=== PATIENT | male | born 1970 | race Caucasian/White ===

== ENCOUNTER → 2020-06-08 | Outpatient (CLI) | payer BC | END | disposition home or self-care (01) | LOC: LABPAT 08:03 | PROVIDERS: ATTEND Surgery | DX: U07.1 COVID-19 (principal) | CPT/HCPCS: U0003; C9803 ==

== ENCOUNTER 2020-06-15 08:19 | Day surgery (SDC) | payer BC ==
[2020-06-14 09:19] VITALS: BMI 31.9
[~2020-06-15 08:19] MED LIST: LACTATED RINGERS 1,000 ML IV SCH; LIDOCAINE 1% (10MG/ML) FOR IV START INTRADERMA PRN
[2020-06-15 08:58] VITALS: RESP 16; TEMP 96.9
[2020-06-15] MEDS ORDERED: PROPOFOL 10 MG/ML 20 ML VIAL IV ONE (09:34)
--- NOTE | 2020-06-15 09:37 | P.GSHP ---
History of Present Illness H&P Date: 06/15/20 50-year-old male presents for an elective colonoscopy. His last colonoscopy was 10 years ago. No polyps at that time. He states he occasionally has blood in his stool. Denies any family history of colon cancer. Denies any history of ulcerative colitis or Crohn's disease. No recent fevers, chills, chest pain or shortness of breath. - Review of Systems All systems: negative Past Medical History Past Medical History: Hypertension Additional Past Medical History / Comment(s): seasonal allergies History of Any Multi-Drug Resistant Organisms: MRSA Date of last positivie culture/infection: 2009 MDRO Source:: buttock Past Surgical History: Orthopedic Surgery Additional Past Surgical History / Comment(s): arthroscopies both knees, scope right hip Past Anesthesia/Blood Transfusion Reactions: No Reported Reaction Smoking Status: Never smoker - Past Family History Father Family Medical History: Cancer Medications and Allergies Home Medications Medication Instructions Recorded Confirmed Type amLODIPine BESYLATE/BENAZEPRIL 1 cap PO DAILY 02/27/16 06/15/20 History [Lotrel 5-20 mg Capsule] Fluticasone Propionate [Flonase 1 spray EA NOSTRIL DAILY PRN 06/14/20 06/15/20 History Allergy Relief] Loratadine [Claritin] 10 mg PO DAILY PRN 06/14/20 06/15/20 History Allergies Allergy/AdvReac Type Severity Reaction Status Date / Time No Known Allergies Allergy Verified 06/15/20 09:00 Surgical - Exam Osteopathic Statement: *. No significant issues noted on an osteopathic structural exam other than those noted in the History and Physical/Consult. Vital Signs Temp Pulse Resp BP Pulse Ox 96.9 F L 72 16 147/93 97 06/15/20 08:49 06/15/20 08:49 06/15/20 08:49 06/15/20 08:49 06/15/20 08:49 - General well developed, well nourished - Eyes PERRL - Neck trachea midline - Respiratory normal respiratory effort - Abdomen Soft, nontender, nondistended, no rebound, no guarding - Psychiatric oriented to time, oriented to person, oriented to place Assessment and Plan Plan: 50-year-old male presents for an elective colonoscopy for screening purposes. Risks, benefits and alternatives were provided to the patient. Consent was provided by the patient. Further recommendations after procedure.
--- NOTE | 2020-06-15 09:54 | P.PCN ---
Date of Procedure: 06/15/20 Preoperative Diagnosis: Screening Postoperative Diagnosis: Internal hemorrhoids Procedure(s) Performed: Colonoscopy Surgeon: Gricel Hagan Pathology: none sent Condition: stable Disposition: same day Indications for Procedure: 50-year-old male presents for screening colonoscopy. He complains of occasional blood in his stool. Denies any family history of colon cancer. Denies any inflammatory bowel disease history. Operative Findings: Internal hemorrhoids Description of Procedure: The patient was brought into the endoscopy suite and placed in left lateral decubitus position. Adequate sedation was achieved using conscious sedation. A digital rectal exam was performed and internal hemorrhoids were palpated. An endoscope was placed in the rectum and advanced to the cecum as identified by landmarks including the appendiceal orifice and the ileocecal valve. The prep was good. The colonoscope was then slowly withdrawn, examining for any mucosal abnormalities. The cecum, ascending, transverse, descending and sigmoid colon were visualized adequately. There no obvious masses throughout the colon. There were no obvious neoplastic lesion. There were no polyps noted. There was no evidence of diverticulosis. Retroflex was performed in the rectum and internal hemorrhoids were visible. Excess air was removed, the colonoscope withdrawn and the procedure terminated. The patient was then transferred to the recovery unit in stable condition. Repeat colonoscopy should be performed in 10 years.
[2020-06-15 10:02] VITALS: BP 119/87; PULSE 70
== END 2020-06-15 11:05 | disposition home or self-care (01) ==
LOC: ORWHC2ENDO 08:19
PROVIDERS: ATTEND Surgery
DX: K64.8 Other hemorrhoids (principal); K92.1 Melena; I10 Essential (primary) hypertension; Z86.14 Personal history of Methicillin resistant Staphylococcus aureus infection; Z98.890 Other specified postprocedural states; Z79.899 Other long term (current) drug therapy; J30.2 Other seasonal allergic rhinitis
CPT/HCPCS: 45378; J2704

== ENCOUNTER → 2020-12-04 | Outpatient (CLI) | payer BC | END | disposition home or self-care (01) | LOC: LABWHC1 16:57 | PROVIDERS: ATTEND Family Medicine | DX: Z03.818 Encounter for observation for suspected exposure to other biological agents ruled out (principal) | CPT/HCPCS: U0003; C9803 ==

== ENCOUNTER → 2021-02-08 | Outpatient (CLI) | payer BC | END | disposition home or self-care (01) | LOC: LABPAT 08:31 | PROVIDERS: ATTEND Surgery | DX: Z01.812 Encounter for preprocedural laboratory examination (principal); Z20.822 Contact with and (suspected) exposure to COVID-19 | CPT/HCPCS: 93005; U0003; U0005 ==

== ENCOUNTER 2021-02-15 11:18 | Day surgery (SDC) | payer BC ==
[2021-02-13 12:44] VITALS: BMI 33.4
[~2021-02-15 11:18] MED LIST changes: +DEXAMETHASONE SOD PHOSPHATE 4 MG/ML 1 ML VIAL IV ONE; +HYDROmorphone 0.5 MG/0.5 ML SYRINGE IVP PRN; -LIDOCAINE 1% (10MG/ML) FOR IV START INTRADERMA PRN; +MIDAZOLAM 2 MG/2 ML VIAL IV PRN; +ONDANSETRON 4 MG/2 ML VIAL IVP ONE; +SCOPOLAMINE 1.5MG/72HR PATCH TRANSDERM ONE
[2021-02-15 11:37] VITALS: RESP 16; TEMP 97.9
[2021-02-15] MEDS ORDERED: LIDOCAINE 1% (10MG/ML) FOR IV START INTRADERMA ONE (11:46)
[2021-02-15] MEDS ORDERED: fentaNYL (PF) 50 MCG/ML 2 ML AMP ONE (12:05)
[2021-02-15] MEDS ORDERED: SUCCINYLCHOLINE CHLORIDE 100 MG/5 ML SYR IV ONE (12:05)
[2021-02-15] MEDS ORDERED: LIDOCAINE 1% INJ 10MG/ML (20 ML MDV) ONE (12:05)
[2021-02-15] MEDS ORDERED: MIDAZOLAM 2 MG/2 ML VIAL ONE (12:05)
[2021-02-15] MEDS ORDERED: PROPOFOL 10 MG/ML 20 ML VIAL IV ONE (12:05)
[2021-02-15] MEDS ORDERED: BUPIVACAINE (PF) 0.25% 30 ML VIAL SQ ONE ×2 (12:33)
[2021-02-15] MEDS ORDERED: GELATIN SPONGE,ABSORB (LARGE) 1 EACH SPONGE TOPICAL ONE (12:48)
[2021-02-15] MEDS ORDERED: LIDOCAINE 2% GEL 30 ML TUBE TOPICAL ONE (12:48)
--- NOTE | 2021-02-15 13:12 | P.OP ---
Date of Procedure: 02/15/21 Preoperative Diagnosis: Internal hemorrhoids Postoperative Diagnosis: Internal hemorrhoids, grade 3 Procedure(s) Performed: Hemorrhoidectomy Anesthesia: OSCAR Surgeon: Gricel Hagan Pathology: other (Hemorrhoids) Condition: stable Disposition: same day Indications for Procedure: 50-year-old male presented to the surgery clinic with complaints of painful hemorrhoids. Based on his description, patient was noted to have grade 3 hemorrhoids. Discussion was had and patient has opted for hemorrhoidectomy. Patient was explained risks, benefits and alternatives to the procedure and did provide consent prior to attending the operating suite. Operative Findings: Grade 3 internal hemorrhoids Description of Procedure: The patient was brought into the operating suite and placed in supine position. After induction of general anesthesia and intubation, patient was placed prone on the operating table and placed in jackknife position. Patient was then prepped and draped in regular sterile fashion. Rectal exam was then performed with retractor. Large internal hemorrhoid was noted at approximately the 4 o'clock position. It was grasped with a hemorrhoidal clamp. An elliptical incision was then made to excise the large hemorrhoid. Incision was made while staying superficial to the sphincter muscle. The hemorrhoid was then dissected free using LigaSure device. Bleeding was controlled with Bovie electrocautery. The mucosa was then closed with a running 3-0 Vicryl stitch, leaving the endpoint epidermis open. On further exam of the rectum, no additional significant internal hemorrhoids were noted. Gelfoam was then wrapped in placed within the rectal vault. Lidocaine ointment was placed. Sterile dressing was applied and the patient was awakened in the operating suite and taken to postanesthesia care unit in stable condition.
[2021-02-15 14:25] VITALS: BP 118/67; PULSE 72
== END 2021-02-15 14:39 | disposition home or self-care (01) ==
LOC: OR 11:18
PROVIDERS: ATTEND Surgery
DX: K64.2 Third degree hemorrhoids (principal); Z80.0 Family history of malignant neoplasm of digestive organs; I10 Essential (primary) hypertension; J30.2 Other seasonal allergic rhinitis; Z79.899 Other long term (current) drug therapy
CPT/HCPCS: 46255; 88304; J2250; J1100; J0690; J2405; J2001; J3010; J0330; J2704

== ENCOUNTER 2022-03-06 08:06 | Emergency (ER) | payer BC ==
[2022-03-06 08:16] VITALS: RESP 18; TEMP 97.9
--- NOTE | 2022-03-06 08:51 | ED ---
Abdominal Pain HPI - General Chief Complaint: Abdominal Pain Stated Complaint: L side pain Time Seen by Provider: 03/06/22 08:20 Source: patient, RN notes reviewed Mode of arrival: ambulatory Limitations: no limitations - History of Present Illness Initial Comments: 52-year-old male who prior history of any abdominal problems who states for the past week or so is had left-sided abdominal pain left lower left upper and increases with movement increases with deep breathing but no nausea no vomiting no fevers chills sweats no diarrhea no constipation he does not recall doing anything heavy other than some yard work. No rashes reported. MD Complaint: abdominal pain, flank pain - Related Data Home Medications Medication Instructions Recorded Confirmed amLODIPine BESYLATE/BENAZEPRIL 1 cap PO DAILY 02/27/16 03/06/22 [Lotrel 5-20 MG] Fluticasone Propionate [Flonase 2 spray EA NOSTRIL HS PRN 06/14/20 03/06/22 Allergy Relief] Loratadine [Claritin] 10 mg PO DAILY PRN 06/14/20 03/06/22 Previous Rx's Medication Instructions Recorded Ketorolac [Toradol] 10 mg PO Q6HR #20 tab 03/06/22 Allergies Allergy/AdvReac Type Severity Reaction Status Date / Time No Known Allergies Allergy Verified 03/06/22 10:59 Review of Systems ROS Statement: Those systems with pertinent positive or pertinent negative responses have been documented in the HPI. ROS Other: All systems not noted in ROS Statement are negative. Past Medical History Past Medical History: Hypertension Additional Past Medical History / Comment(s): allergies History of Any Multi-Drug Resistant Organisms: MRSA Date of last positivie culture/infection: 2009 MDRO Source:: buttock Past Surgical History: Orthopedic Surgery Additional Past Surgical History / Comment(s): arthroscopies both knees, right hip Past Anesthesia/Blood Transfusion Reactions: No Reported Reaction Past Psychological History: No Psychological Hx Reported Smoking Status: Never smoker Past Alcohol Use History: Occasional Past Drug Use History: None Reported - Past Family History Father Family Medical History: Cancer General Exam - General Exam Comments Initial Comments: This is a well-developed well-nourished awake alert oriented 4 male Limitations: no limitations General appearance: alert, in no apparent distress Head exam: Present: atraumatic, normocephalic, normal inspection Eye exam: Present: normal appearance, PERRL, EOMI. Absent: scleral icterus, conjunctival injection, periorbital swelling ENT exam: Present: normal exam, mucous membranes moist Neck exam: Present: normal inspection. Absent: tenderness, meningismus, lymphadenopathy Respiratory exam: Present: normal lung sounds bilaterally. Absent: respiratory distress, wheezes, rales, rhonchi, stridor Cardiovascular Exam: Present: regular rate, normal rhythm, normal heart sounds. Absent: systolic murmur, diastolic murmur, rubs, gallop, clicks GI/Abdominal exam: Present: soft, tenderness (Some tenderness palpation over the left upper quadrant flank area no overt guarding rebound masses or bruits), normal bowel sounds. Absent: distended, guarding, rebound, rigid Rectal exam: Present: deferred Extremities exam: Present: normal inspection, full ROM, normal capillary refill. Absent: tenderness, pedal edema, joint swelling, calf tenderness Back exam: Present: normal inspection Neurological exam: Present: alert, oriented X3, CN II-XII intact Psychiatric exam: Present: normal affect, normal mood Skin exam: Present: warm, dry, intact, normal color. Absent: rash Course Vital Signs 03/06/22 03/06/22 08:11 11:00 Temperature 97.9 F 97.9 F Pulse Rate 76 79 Respiratory 18 18 Rate Blood Pressure 151/97 115/92 O2 Sat by Pulse 98 96 Oximetry Medical Decision Making - Medical Decision Making I did discuss findings with the patient. Patient does present with abdominal pain and evaluation consistent with epiploic appendigitis. The patient will be placed on Toradol for pain we did discuss return parameters. The patient is in agreement with this - Lab Data Result diagrams: 03/06/22 09:04 03/06/22 09:04 Lab Results 03/06/22 03/06/22 03/06/22 Range/Units 09:04 09:04 09:04 WBC 7.8 (3.8-10.6) k/uL RBC 5.75 (4.30-5.90) m/uL Hgb 18.2 H (13.0-17.5) gm/dL Hct 52.1 (39.0-53.0) % MCV 90.7 (80.0-100.0) fL MCH 31.6 (25.0-35.0) pg MCHC 34.8 (31.0-37.0) g/dL RDW 13.8 (11.5-15.5) % Plt Count 248 (150-450) k/uL MPV 7.5 Neutrophils % 69 % Lymphocytes % 20 % Monocytes % 6 % Eosinophils % 2 % Basophils % 1 % Neutrophils # 5.4 (1.3-7.7) k/uL Lymphocytes # 1.6 (1.0-4.8) k/uL Monocytes # 0.4 (0-1.0) k/uL Eosinophils # 0.2 (0-0.7) k/uL Basophils # 0.0 (0-0.2) k/uL Sodium 140 (137-145) mmol/L Potassium 4.1 (3.5-5.1) mmol/L Chloride 105 (98-107) mmol/L Carbon Dioxide 26 (22-30) mmol/L Anion Gap 9 mmol/L BUN 8 L (9-20) mg/dL Creatinine 0.92 (0.66-1.25) mg/dL Est GFR (CKD-EPI)AfAm >90 (>60 ml/min/1.73 sqM) Est GFR (CKD-EPI)NonAf >90 (>60 ml/min/1.73 sqM) Glucose 121 H (74-99) mg/dL Plasma Lactic Acid Abhijit (0.7-2.0) mmol/L Calcium 9.2 (8.4-10.2) mg/dL Total Bilirubin 0.7 (0.2-1.3) mg/dL AST 26 (17-59) U/L ALT 33 (4-49) U/L Alkaline Phosphatase 151 H (38-126) U/L Troponin I (0.000-0.034) ng/mL Total Protein 7.0 (6.3-8.2) g/dL Albumin 4.2 (3.5-5.0) g/dL Amylase 83 (30-110) U/L Lipase 117 (23-300) U/L Urine Color Light Yellow Urine Appearance Clear (Clear) Urine pH 6.0 (5.0-8.0) Ur Specific [place] 1.003 (1.001-1.035) Urine Protein Negative (Negative) Urine Glucose (UA) Negative (Negative) Urine Ketones Negative (Negative) Urine Blood Negative (Negative) Urine Nitrite Negative (Negative) Urine Bilirubin Negative (Negative) Urine Urobilinogen <2.0 (<2.0) mg/dL Ur Leukocyte Esterase Negative (Negative) 03/06/22 03/06/22 Range/Units 09:04 09:04 WBC (3.8-10.6) k/uL RBC (4.30-5.90) m/uL Hgb (13.0-17.5) gm/dL Hct (39.0-53.0) % MCV (80.0-100.0) fL MCH (25.0-35.0) pg MCHC (31.0-37.0) g/dL RDW (11.5-15.5) % Plt Count (150-450) k/uL MPV Neutrophils % % Lymphocytes % % Monocytes % % Eosinophils % % Basophils % % Neutrophils # (1.3-7.7) k/uL Lymphocytes # (1.0-4.8) k/uL Monocytes # (0-1.0) k/uL Eosinophils # (0-0.7) k/uL Basophils # (0-0.2) k/uL Sodium (137-145) mmol/L Potassium (3.5-5.1) mmol/L Chloride (98-107) mmol/L Carbon Dioxide (22-30) mmol/L Anion Gap mmol/L BUN (9-20) mg/dL Creatinine (0.66-1.25) mg/dL Est GFR (CKD-EPI)AfAm (>60 ml/min/1.73 sqM) Est GFR (CKD-EPI)NonAf (>60 ml/min/1.73 sqM) Glucose (74-99) mg/dL Plasma Lactic Acid Abhijit 1.5 (0.7-2.0) mmol/L Calcium (8.4-10.2) mg/dL Total Bilirubin (0.2-1.3) mg/dL AST (17-59) U/L ALT (4-49) U/L Alkaline Phosphatase (38-126) U/L Troponin I <0.012 (0.000-0.034) ng/mL Total Protein (6.3-8.2) g/dL Albumin (3.5-5.0) g/dL Amylase (30-110) U/L Lipase (23-300) U/L Urine Color Urine Appearance (Clear) Urine pH (5.0-8.0) Ur Specific [place] (1.001-1.035) Urine Protein (Negative) Urine Glucose (UA) (Negative) Urine Ketones (Negative) Urine Blood (Negative) Urine Nitrite (Negative) Urine Bilirubin (Negative) Urine Urobilinogen (<2.0) mg/dL Ur Leukocyte Esterase (Negative) - Radiology Data Radiology results: report reviewed (Imaging reviewed as well as reports evidence of epiploic appendigitis of the descending colon no diverticulitis no appendicitis. She complete report), image reviewed Disposition Clinical Impression: Abdominal pain, Epiploic appendagitis Disposition: HOME SELF-CARE Condition: Good Instructions (If sedation given, give patient instructions): Abdominal Pain (ED), Epiploic Appendagitis (ED) Prescriptions: Ketorolac [Toradol] 10 mg PO Q6HR #20 tab Is patient prescribed a controlled substance at d/c from ED?: No Referrals: Fan Spangler DO [Primary Care Provider] - 1-2 days Decision Date: 03/06/22 Decision Time: 12:09
[2022-03-06 09:14] LABS: Appearance,Urine Clear (Clear); Bilirubin,Urine Negative (Negative); Blood,Urine Negative (Negative); Color,Urine Light Yellow; Glucose,Urine (UA) Negative (Negative); Ketones,Urine Negative (Negative); Leukocyte Esterase,Urine Negative (Negative); Nitrite,Urine Negative (Negative); Protein,Urine Negative (Negative); Specific Gravity,Urine 1.003 (1.001-1.035); Urobilinogen,Urine <2.0 mg/dL (<2.0)
[2022-03-06 09:15] LABS: Basophils % (A) 1 %; Eosinophils # (A) 0.2 k/uL (0-0.7); Eosinophils % (A) 2 %; HCT 52.1 % (39.0-53.0); HGB 18.2 gm/dL (13.0-17.5); Lymphocytes # (A) 1.6 k/uL (1.0-4.8); Lymphocytes % (A) 20 %; MCH 31.6 pg (25.0-35.0); MCHC 34.8 g/dL (31.0-37.0); MCV 90.7 fL (80.0-100.0); Mean Platelet Volume 7.5; Monocytes # (A) 0.4 k/uL (0-1.0); Monocytes % (A) 6 %; Neutrophils # (A) 5.4 k/uL (1.3-7.7); Neutrophils % (A) 69 %; Platelet Count 248 k/uL (150-450); RBC 5.75 m/uL (4.30-5.90); RDW 13.8 % (11.5-15.5); WBC 7.8 k/uL (3.8-10.6)
[2022-03-06 09:29] LABS: ALT 33 U/L (4-49); AST 26 U/L (17-59); African American GFR (CKD) >90 (>60 ml/min/1.73 sqM); Albumin 4.2 g/dL (3.5-5.0); Alkaline Phosphatase 151 U/L (38-126); Amylase 83 U/L (30-110); Anion Gap 9 mmol/L; Blood Urea Nitrogen 8 mg/dL (9-20); Calcium 9.2 mg/dL (8.4-10.2); Carbon Dioxide 26 mmol/L (22-30); Chloride 105 mmol/L (98-107); Glucose 121 mg/dL (74-99); Lipase 117 U/L (23-300); Non-African American GFR(CKD) >90 (>60 ml/min/1.73 sqM); Potassium 4.1 mmol/L (3.5-5.1); Sodium 140 mmol/L (137-145); Total Bilirubin 0.7 mg/dL (0.2-1.3)
--- NOTE | 2022-03-06 10:02 | CT ---
EXAMINATION TYPE: CT abdomen pelvis w con DATE OF EXAM: 03/06/2022 COMPARISON: No previous CT scan is available for comparison HISTORY: Left sided abdominal pain CT DLP: 1249.6 mGycm Automated exposure control for dose reduction was used. TECHNIQUE: Helical acquisition of images was performed from the lung bases through the pelvis. CONTRAST: Performed without Oral Contrast and with IV Contrast, patient injected with 100 mL of Isovue 300. FINDINGS: LUNG BASES: No significant abnormality is appreciated. LIVER/GB: Millimetric right hepatic lobe hypodensity likely representing a hepatic cyst. Millimetric densities within the gallbladder which could represent tiny calculi, sludge or polyps. Recommend furt her elective ultrasound assessment. PANCREAS: Multiple tiny hypodensities are seen within the pancreatic head, possibly representing tiny cysts. Recommend further elective MRI assessment. SPLEEN: Bulky spleen measuring 14.4 cm. No definite splenic focal lesion. ADRENALS: No significant abnormality is seen. KIDNEYS: Suspected tiny cyst at the lower pole of the left kidney. Suspected focal scarring/cortical defect at the lateral aspect of the left kidney, possibly sequela of previous infarct/infection. Othe rwise unremarkable kidneys. FREE AIR: No free air is visualized. RETROPERITONEAL ADENOPATHY: None visualized REPRODUCTIVE ORGANS: No significant abnormality is seen URINARY BLADDER: No significant abnormality is seen. PELVIC ADENOPATHY: No pathologically enlarged pelvic lymph nodes. OSSEOUS STRUCTURES: Mild retrolisthesis of L5 over S1. BOWEL: Epiploic appendagitis rather than acute diverticulitis of the midportion of the descending co smith. No definite abscess formation or signs of perforation. OTHER: Left fat containing inguinal hernia. Fat-containing umbilical hernia IMPRESSION: Mid-descending colon epiploic appendagitis rather than acute diverticulitis as described above. No ev idence of perforation or abscess formation. Other incidental findings and recommendations as describe d above.
[2022-03-06 11:09] VITALS: BP 115/92; PULSE 79
[2022-03-06] MEDS ORDERED: KETOROLAC 15 MG/ML 1 ML VIAL IVP STA (11:51)
== END 2022-03-06 11:00 | disposition home or self-care (01) ==
LOC: EC 08:06
DX: K63.89 Other specified diseases of intestine (principal); I10 Essential (primary) hypertension; Z79.899 Other long term (current) drug therapy
CPT/HCPCS: 36415; 80053; 82150; 83605; 83690; 84484; 85025; 81003; 74177; 99284; 96374; J1885; Q9967

== ENCOUNTER 2022-03-26 07:45 | Emergency (ER) | payer BC ==
[2022-03-26 08:01] VITALS: BP 143/89; PULSE 65; RESP 20; TEMP 98
[2022-03-26] MEDS ORDERED: CEPHALEXIN 500 MG CAP PO STA (08:18)
[2022-03-26] MEDS ORDERED: dexAMETHasone 2 MG TAB PO STA (08:18)
--- NOTE | 2022-03-26 08:21 | ED ---
General Adult HPI - General Chief complaint: Skin/Abscess/Foreign Body Stated complaint: insect bite Time Seen by Provider: 03/26/22 08:04 Source: patient, RN notes reviewed, old records reviewed Mode of arrival: ambulatory Limitations: no limitations - History of Present Illness Initial comments: Patient is a 52-year-old male with no significant past medical history presents emergency Department complaining of a bug bite to the right hand. States it happened over the weekend while outside. It is currently Thursday. Initially had some swelling over the lateral aspect of the right hand. He noticed it immediately after the bite or sting which she felt. It is erythematous at that time. Since that time he has noticed that the swelling has gotten somewhat worse over the entire aspect of the backside of his hand. Denies any difficulty with movement of his hand. Endorses very slight tingling in fingertips which is not consistent. Denies any weakness. Denies any systemic signs including fevers, chills, sick contacts. No other acute complaints at this time. Presents over concern for possible skin infection following the sting or bite. Did not see the bug, however he states the symptoms started immediately after it happened. No attached bug or tick. - Related Data Home Medications Medication Instructions Recorded Confirmed amLODIPine BESYLATE/BENAZEPRIL 1 cap PO DAILY 02/26/03/06/22 [Lotrel 5-20 MG] Fluticasone Propionate [Flonase 2 spray EA NOSTRIL HS PRN 06/14/20 03/06/22 Allergy Relief] Loratadine [Claritin] 10 mg PO DAILY PRN 06/14/20 03/06/22 Previous Rx's Medication Instructions Recorded Ketorolac [Toradol] 10 mg PO Q6HR #20 tab 03/06/22 Cephalexin [Keflex] 500 mg PO Q12HR 7 Days #14 cap 03/26/22 Allergies Allergy/AdvReac Type Severity Reaction Status Date / Time No Known Allergies Allergy Verified 03/26/22 08:01 Review of Systems ROS Statement: Those systems with pertinent positive or pertinent negative responses have been documented in the HPI. Review of Systems: CONST: Denies fever EYES: Denies blurry vision ENT: Denies nasal congestion C/V: Denies Chest pain RESP: Denies shortness of breath GI: Denies abdominal pain : Denies dysuria SKIN: Endorses swelling over right hand. MSK: Denies joint pain. NEURO: Denies headache ROS Other: All systems not noted in ROS Statement are negative. Past Medical History Past Medical History: Hypertension Additional Past Medical History / Comment(s): allergies History of Any Multi-Drug Resistant Organisms: MRSA Date of last positivie culture/infection: 2009 MDRO Source:: buttock Past Surgical History: Orthopedic Surgery Additional Past Surgical History / Comment(s): arthroscopies both knees, right hip Past Anesthesia/Blood Transfusion Reactions: No Reported Reaction Past Psychological History: No Psychological Hx Reported Smoking Status: Never smoker Past Alcohol Use History: Occasional Past Drug Use History: None Reported - Past Family History Father Family Medical History: Cancer General Exam - General Exam Comments Initial Comments: General: Appears in no acute distress. HEAD: Normal with no signs of head trauma. EYES: EOMI ENT: Hearing grossly intact RESPIRATORY: No respiratory distress C/V: 2+ right radial and ulnar pulses. Regular rate and rhythm. ABD: Nondistended abdomen EXT: Normal range of motion of the right hand. No obvious deformity. Neurovascularly intact in the right hand. SKIN: Edema located over the dorsal aspect of the right hand. It is mild. No fluctuance palpated. No induration. Mild erythema as well, primarily near the site of the initial sting over the posterior aspect of the right fifth metacarpal. NEURO: Alert and oriented 4. No focal deficits. Limitations: no limitations Course Vital Signs 03/26/22 07:59 Temperature 98 F Pulse Rate 65 Respiratory 20 Rate Blood Pressure 143/89 O2 Sat by Pulse 99 Oximetry Medical Decision Making - Medical Decision Making Based on patient's presentation and physical exam, does. He is having some slightly worsening edema of the right hand following a bug bite. Neurovascularly he is intact. No signs of compartment syndrome. Full range of motion of the right hand at this time. No obvious signs of abscess or complicated cellulitis. I discussed this with the patient. Believe it is safe to discharge patient home on oral antibiotics. Vital signs are within normal limits. We the imaging is needed at this time. Patient was in agreement this plan. Strict return precautions were advised, including worsening swelling, systemic fevers, neurovascular compromise, worsening ability of normal hand movements. I will provide the patient with a prescription for Keflex. I instructed the patient to follow up with their PCP in the next 1-3 days. I explained that the patient should return to the emergency department if they experience any worsening symptoms. Strict return precautions were discussed with the patient. The patient expressed understanding of these instructions. I answered all questions that the patient had. The patient was discharged home in good condition with their prescriptions and follow up information. Disposition Clinical Impression: Cellulitis, Bug bite of hand Disposition: HOME SELF-CARE Condition: Good Instructions (If sedation given, give patient instructions): Cellulitis (ED), Insect Bite or Sting (ED) Prescriptions: Cephalexin [Keflex] 500 mg PO Q12HR 7 Days #14 cap Is patient prescribed a controlled substance at d/c from ED?: No Referrals: Fan Spangler DO [Primary Care Provider] - 1-2 days Time of Disposition: 08:20
== END 2022-03-26 08:35 | disposition home or self-care (01) ==
LOC: EC 07:45
DX: S60.561A Insect bite (nonvenomous) of right hand, initial encounter (principal); L03.113 Cellulitis of right upper limb; I10 Essential (primary) hypertension; Z79.899 Other long term (current) drug therapy; W57.XXXA Bitten or stung by nonvenomous insect and other nonvenomous arthropods, initial encounter
CPT/HCPCS: 99283; J8540

== ENCOUNTER 2022-10-05 10:44 | Emergency (ER) | payer BC ==
[2022-10-05 10:51] VITALS: TEMP 97.8
[2022-10-05] MEDS ORDERED: ACETAMINOPHEN TAB 500 MG TAB PO STA (11:03)
--- NOTE | 2022-10-05 11:34 | XR ---
EXAMINATION TYPE: XR shoulder complete RT DATE OF EXAM: 10/05/2022 11:11 AM INDICATION: Patient age:Male; 52 years old; Reason for study: shoulder pain, right; COMPARISON: None TECHNIQUE: The right shoulder was examined in AP, internally rotated and scapular Y projections. FINDINGS: No evidence of acute osseous pathology, joint dislocation, or soft tissue swelling. The remaining por tions of the visualized chest are unremarkable. IMPRESSION: No acute osseous pathology.
[2022-10-05] MEDS ORDERED: ACET/COD 300 MG/30 MG STARTER PACK 6 TAB BTL PO STA (12:33)
--- NOTE | 2022-10-05 12:33 | ED ---
General Adult HPI - General Chief complaint: Extremity Injury, Upper Stated complaint: rt shoulder injury Time Seen by Provider: 10/05/22 11:03 Source: patient, RN notes reviewed, old records reviewed Mode of arrival: ambulatory Limitations: no limitations - History of Present Illness Initial comments: Patient is a 52-year-old male who presents to pursue department complaint of right shoulder pain. Started last Thursday after shoveling snow. States it is located in his right shoulder is worse with movement of the shoulder. Pain is worse with elevation of his right upper extremity.. Worsening pain with any movement of the right upper extremity. Pain seems localized over the shoulder. Denies any sensory deficits. Denies any neck pain. Denies any obvious injury other than from shoveling snow. - Related Data Home Medications Medication Instructions Recorded Confirmed amLODIPine BESYLATE/BENAZEPRIL 1 cap PO DAILY 02/27/16 03/06/22 [Lotrel 5-20 MG] Fluticasone Propionate [Flonase 2 spray EA NOSTRIL HS PRN 06/14/20 03/06/22 Allergy Relief] Loratadine [Claritin] 10 mg PO DAILY PRN 06/14/20 03/06/22 Previous Rx's Medication Instructions Recorded Ketorolac [Toradol] 10 mg PO Q6HR #20 tab 03/06/22 Cephalexin [Keflex] 500 mg PO Q12HR 7 Days #14 cap 03/26/22 Allergies Allergy/AdvReac Type Severity Reaction Status Date / Time No Known Allergies Allergy Verified 10/05/22 10:49 Review of Systems ROS Statement: Those systems with pertinent positive or pertinent negative responses have been documented in the HPI. Review of Systems: CONST: Denies fever EYES: Denies blurry vision ENT: Denies nasal congestion C/V: Denies Chest pain RESP: Denies shortness of breath GI: Denies abdominal pain : Denies dysuria SKIN: Denies rash. MSK: Endorses right shoulder pain. NEURO: Denies headache ROS Other: All systems not noted in ROS Statement are negative. Past Medical History Past Medical History: Hypertension Additional Past Medical History / Comment(s): allergies History of Any Multi-Drug Resistant Organisms: MRSA Date of last positivie culture/infection: 2009 MDRO Source:: buttock Past Surgical History: Orthopedic Surgery Additional Past Surgical History / Comment(s): arthroscopies both knees, right hip Past Anesthesia/Blood Transfusion Reactions: No Reported Reaction Past Psychological History: No Psychological Hx Reported Smoking Status: Never smoker Past Alcohol Use History: Occasional Past Drug Use History: None Reported - Past Family History Father Family Medical History: Cancer General Exam - General Exam Comments Initial Comments: General: Appears in no acute distress. HEAD: Normal with no signs of head trauma. EYES: EOMI ENT: Hearing grossly intact RESPIRATORY: No respiratory distress C/V: Peripheral pulses 2+ intact throughout. Regular rate and rhythm. ABD: Nondistended EXT: Reduced range of motion of the right shoulder secondary to pain. Continue with all ranges of motion however it is painful to complete full abduction as well as flexion and extension. Patient has point tenderness over the right before meals joint as well as the posterior shoulder muscles. No obvious deformities. No pain with passive range of motion. Neurovascularly intact. SKIN: No rashes or lesions observed on exposed skin. NEURO: Alert and oriented 4. Limitations: no limitations Course Vital Signs 10/05/22 10:50 Temperature 97.8 F Pulse Rate 69 Respiratory 16 Rate Blood Pressure 178/98 O2 Sat by Pulse 98 Oximetry Medical Decision Making - Medical Decision Making Based on the patient's presentation and physical exam, I do suspect a shoulder sprain but I did offer an x-ray to rule out bony traumatic injury. He was in agreement this plan. He already took Motrin at home and therefore will provide him with Tylenol. Injury occurred on Thursday. Is currently Thursday. Vital signs within acceptable limits. Neurovascular intact in the right operation. X-ray revealed no evidence of acute medical injury. I updated the patient. He asked us understanding. I believe it is safe for him to be discharged home this time. He was in agreement with the plan. He will be given a Tylenol starter pack as well as a shoulder sling. Patient does have familiarity and has seen Dr. Deutsch of orthopedics previously and therefore he will follow-up with him. Strict Return precautions were discussed. I instructed the patient to follow up with their PCP in the next 1-3 days. I provided contact information for follow up with Dr. Deutsch. I explained that the patient should return to the emergency department if they experience any worsening symptoms. Strict return precautions were discussed with the patient. The patient expressed understanding of these instructions. I answered all questions that the patient had. The patient was discharged home in good condition with their prescriptions and follow up information. Was pt. sent in by a medical professional or institution ([facility], [employer], urgent care, hospital, or [place] [facility] facility...) When possible be specific @ -No Did you speak to anyone other than the patient for history (EMS, parent, family, police, friend...)? What history was obtained from this source @ -No Did you review nursing and triage notes (agree or disagree)? Why? @ -I reviewed and agree with nursing and triage notes Were old charts reviewed (outside hosp., previous admission, EMS record, old EKG, old radiological studies, urgent care reports/EKG's, [place] [facility] facility records)? Report findings @ -No old charts were reviewed Differential Diagnosis (chest pain, altered mental status, abdominal pain women, abdominal pain men, vaginal bleeding, weakness, fever, dyspnea, syncope, headache, dizziness, GI bleed, back pain, seizure, CVA, palpatations, mental health)? @ -Right shoulder sprain, right ac joint separation, right shoulder fracture. This list is not all inclusive. EKG interpreted by me (3pts min.). @ -None done X-rays interpreted by me (1pt min.). @ -Right shoulder x-ray showed no acute traumatic injury, fracture. CT interpreted by me (1pt min.). @ -None done U/S interpreted by me (1pt. min.). @ -None done What testing was considered but not performed or refused? (CT, X-rays, U/S, labs)? Why? @ -None What meds were considered but not given or refused? Why? @ -None Did you discuss the management of the patient with other professionals (professionals i.e. [facility], [employer], lab, RT, psych nurse, hospital social worker, office clerk routine, teacher, credit officer, community case manager)? Give summary @ -No Was smoking cessation discussed for >3mins.? @ -No Was critical care preformed (if so, how long)? @ -No Were there social determinants of health that impacted care today? How? (Homelessness, low income, unemployed, alcoholism, drug addiction, transportation, low edu. Level, literacy, decrease access to med. care, long term, rehab)? @ -No Was there de-escalation of care discussed even if they declined (Discuss DNR or withdrawal of care, Hospice)? DNR status @ -No What co-morbidities impacted this encounter? (DM, HTN, Smoking, COPD, CAD, Cancer, CVA, ARF, Chemo, Hep., AIDS, mental health diagnosis, sleep apnea, morbid obesity)? @ -None Was patient admitted / discharged? Hospital course, mention meds given and route, prescriptions, significant lab abnormalities, going to OR and other pertinent info. @ -Discharged home. See above for ED course. Undiagnosed new problem with uncertain prognosis? @ -No Drug Therapy requiring intensive monitoring for toxicity (Heparin, Nitro, Insulin, Cardizem)? @ -No Were any procedures done? @ -No Diagnosis/symptom? @ -Right shoulder sprain. Acute, or Chronic, or Acute on Chronic? @ -Acute Uncomplicated (without systemic symptoms) or Complicated (systemic symptoms)? @ -Uncomplicated Side effects of treatment? @ -No Exacerbation, Progression, or Severe Exacerbation? @ -No Poses a threat to life or bodily function? How? (Chest pain, [place], [place], pneumonia, PE, COPD, DKA, ARF, appy, cholecystitis, CVA, Diverticulitis, Homicidal, Suic idal, threat to staff... and all critical care pts) @ -No Disposition Clinical Impression: Shoulder sprain Disposition: HOME SELF-CARE Condition: Good Instructions (If sedation given, give patient instructions): Shoulder Sprain (ED) Is patient prescribed a controlled substance at d/c from ED?: No Referrals: Fan Spangler DO [Primary Care Provider] - 1-2 days Pepe Deutsch MD [STAFF PHYSICIAN] - 1-2 days Time of Disposition: 12:20
[2022-10-05 12:53] VITALS: BP 142/107; PULSE 64; RESP 18
== END 2022-10-05 12:50 | disposition home or self-care (01) ==
LOC: EC 10:44
DX: S43.401A Unspecified sprain of right shoulder joint, initial encounter (principal); I10 Essential (primary) hypertension; Z79.899 Other long term (current) drug therapy; X50.0XXA Overexertion from strenuous movement or load, initial encounter; Y93.H1 Activity, digging, shoveling and raking
CPT/HCPCS: 99283

== ENCOUNTER → 2024-12-21 | Outpatient (CLI) | payer BC ==
[2024-12-21 18:07] LABS: Basophils # (A) 0.05 X 10*3/uL (0.00-0.10); Basophils % (A) 0.8 %; Eosinophils % (A) 1.6 %; HCT 51.2 % (39.6-50.0); HGB 17.5 g/dL (13.0-17.0); Lymphocytes # (A) 2.03 X 10*3/uL (0.90-5.00); Lymphocytes % (A) 32.2 %; MCH 29.5 pg (27.0-32.0); MCHC 34.2 g/dL (32.0-37.0); MCV 86.3 FL (80.0-97.0); Mean Platelet Volume 9.8 FL (9.5-12.2); Monocytes # (A) 0.55 X 10*3/uL (0.20-1.00); Monocytes % (A) 8.7 %; NRBC Per 100 WBC 0 X 10*3/uL (0.00-0.01); Neutrophils # (A) 3.57 X 10*3/uL (1.80-7.70); Neutrophils % (A) 56.5 %; Platelet Count 236 X 10*3/uL (140-440); RBC 5.93 X 10*6/uL (4.40-5.60); RDW 12.6 % (11.5-14.5); WBC 6.31 X 10*3/uL (4.50-10.00)
[2024-12-21 18:20] LABS: Rheumatoid Factor, Qnt <15 IU/mL (0-15); Uric Acid 5.4 mg/dL (3.7-8.7)
[2024-12-21 19:19] LABS: Erythrocyte Sedimentation Rate 8 mm/Hr (0-20)
[2024-12-21 21:38] LABS: Anti-DNA, DS unit <1.0 IU/mL; DNA Double-Stranded Negative (Negative)
[2024-12-22 10:24] LABS: HLA B27 NEGATIVE
== END | disposition home or self-care (01) ==
LOC: LABWHC1 14:01
PROVIDERS: ATTEND Orthopaedic Surgery
DX: M25.50 Pain in unspecified joint (principal)
CPT/HCPCS: 36415; 84550; 85025; 85652; 86038; 86140; 86225; 86431; 86812

== ENCOUNTER 2025-01-19 08:47 | Day surgery (SDC) | payer BC ==
[2025-01-19 09:09] VITALS: TEMP 97.5
[2025-01-19] MEDS: IV FLUID CONTINUATION 1,000 ML IV ONE (09:14)
[2025-01-19] MEDS: LACTATED RINGERS 1,000 ML IV SCH (09:14)
[2025-01-19] MEDS ORDERED: LIDOCAINE 2% (PF) 20 MG/ML 5 ML VIAL ONE (09:42)
[2025-01-19] MEDS ORDERED: PROPOFOL 10 MG/ML 20 ML VIAL IV ONE (09:42)
--- NOTE | 2025-01-19 10:02 | P.PCN ---
Date of Procedure: 01/19/25 Preoperative Diagnosis: Screening Postoperative Diagnosis: Transverse colon polyp Diverticulosis Procedure(s) Performed: Colonoscopy with forcep polypectomy Anesthesia: MAC Surgeon: Gricel Hagan Pathology: other (Transverse colon polyp) Condition: stable Disposition: same day Indications for Procedure: 54-year-old male presents today for screening colonoscopy. Denies any blood in his stool and denies any family history of colon cancer. Risks, benefits and alternatives were provided to the patient. All questions answered. Operative Findings: Transverse colon polyp Diverticulosis Description of Procedure: The patient was brought to the endoscopy suite and placed in left lateral decubitus position and adequate sedation was achieved using conscious sedation. Digital rectal exam was performed and mild internal hemorrhoids were palpated. An endoscope was then placed in the rectum and advanced to the cecum as identified by landmarks including the appendiceal orifice and the ileocecal valve. The prep was good. The colonoscope was then slowly withdrawn, examining for any mucosal abnormalities. The cecum, ascending, transverse, descending and sigmoid colon were visualized adequately. Small polyp was noted in the transverse colon this was removed with forcep polypectomy. Hemostasis was maintained. No large neoplastic lesions noted. Diverticulosis noted in the sigmoid colon retroflexion was performed in the rectum and mild internal hemorrhoids were visualized. Excess air was removed, the colonoscope withdrawn and the procedure terminated. The patient was then transferred to the recovery unit in stable condition. Repeat colonoscopy should be performed in 5 years.
[2025-01-19 10:08] VITALS: RESP 16
[2025-01-19 10:19] VITALS: BP 138/90; PULSE 62
== END 2025-01-19 10:54 | disposition home or self-care (01) ==
LOC: ORWHC2ENDO 08:47
PROVIDERS: ATTEND Surgery
DX: Z12.11 Encounter for screening for malignant neoplasm of colon (principal); D12.3 Benign neoplasm of transverse colon; K57.30 Diverticulosis of large intestine without perforation or abscess without bleeding; K64.8 Other hemorrhoids
CPT/HCPCS: 88305; 45380; J2704; J2003